=== PATIENT | female | born 1985 | race Caucasian/White ===

== ENCOUNTER 2019-08-09 05:48 | Inpatient (IN) | payer OTHER ==
[~2019-08-09] VITALS: Ht 162.6 cm; Wt 120.0 kg
[2019-08-09] MEDS ORDERED: EXPECTA PRENAT1 EACH (07:53)
[2019-08-09 08:31] LABS: BASOPHILS ABSOLUTE AUTO 0.04 K/mm3 (0.00-0.23); BASOPHILS PERCENT AUTO 0 % (0-2); EOSINOPHILS PERCENT AUTO 1 % (0-6); Hematocrit 38.4 % (33.0-51.0); Hemoglobin 12.8 g/dL (11.5-16.0); IMMATURE GRAN ABSOLUTE AUTO 0.14 K/mm3 (0.00-0.10); IMMATURE GRAN PERCENT AUTO 1 % (0-1); LYMPHOCYTES PERCENT AUTO 11 % (21-46); MONOCYTES ABSOLUTE AUTO 0.92 K/mm3 (0.16-1.47); MONOCYTES PERCENT AUTO 5 % (4-13); Mean Corpuscular HGB 29.6 pg (26.0-34.0); Mean Corpuscular HGB Conc 33.3 g/dL (31.5-36.5); Mean Corpuscular Volume 89 fL (80-100); Mean Platelet Volume 9.5 fL (9.1-12.4); NEUTROPHILS ABSOLUTE AUTO 14.19 K/mm3 (1.96-9.15); NEUTROPHILS PERCENT AUTO 83 % (41-73); Platelet Count 410 K/mm3 (150-400); RDW Coefficient Variation 13.7 % (11.7-14.2); RDW Standard Deviation 44.5 fL (35.1-46.3); Red Blood Cell Count 4.33 M/mm3 (3.80-5.20); White Blood Cell Count 17.19 K/mm3 (4.00-11.30)
[2019-08-10 05:09] LABS: Hemoglobin 10.7 g/dL (11.5-16.0); Mean Corpuscular HGB 29.9 pg (26.0-34.0); Mean Corpuscular HGB Conc 33.4 g/dL (31.5-36.5); Mean Corpuscular Volume 89 fL (80-100); Mean Platelet Volume 9.3 fL (9.1-12.4); Platelet Count 316 K/mm3 (150-400); RDW Coefficient Variation 13.8 % (11.7-14.2); RDW Standard Deviation 45.1 fL (35.1-46.3); Red Blood Cell Count 3.58 M/mm3 (3.80-5.20); White Blood Cell Count 20.15 K/mm3 (4.00-11.30)
[2019-08-10] MEDS ORDERED: IBUP800 PO (09:14)
[2019-08-10] MEDS ORDERED: Percocet 5-3251 EACH PO (09:14)
--- NOTE | 2019-08-10 17:00 | NUR ---
DISCHARGE INSTRUCTIONS REVIEWED AND SIGNED. ALL QUESTIONS ANSWERED. BANDS MATCHED. DISCHARGED TO HOME WITH INFANT.
== END 2019-08-10 17:00 | disposition home or self-care (01) | DRG 807 ==
LOC: OBS 05:48 → BC 05:49 → OBS 07:27 → BC 07:29
PROVIDERS: Advanced Practice Midwife; ADMIT Registered Nurse Community Health
PROC: 10E0XZZ Delivery of Products of Conception, External Approach (ICD-10-PCS; principal; 2019-08-09)
PROC: 10907ZC Drainage of Amniotic Fluid, Therapeutic from Products of Conception, Via Natural or Artificial Opening (ICD-10-PCS; 2019-08-09)
PROC: 3E0R3BZ Introduction of Anesthetic Agent into Spinal Canal, Percutaneous Approach (ICD-10-PCS; 2019-08-09)
DX: O99.824 Streptococcus B carrier state complicating childbirth (principal); Z37.0 Single live birth; O70.0 First degree perineal laceration during delivery; Z3A.38 38 weeks gestation of pregnancy; O99.334 Smoking (tobacco) complicating childbirth; F17.200 Nicotine dependence, unspecified, uncomplicated; O99.214 Obesity complicating childbirth; E66.9 Obesity, unspecified
CPT/HCPCS: 36415; 51702; 59025; 85025; 85027; 86900; 86901; 90686; J0290; J1885; J2001; J2590; J3010; J7120

== ENCOUNTER → 2020-02-14 | Outpatient (CLI) | payer OTHER ==
[~2020-02-14] MED LIST: EXPECTA PRENAT1 EACH; IBUP800 PO; Percocet 5-3251 EACH PO
[2020-02-14 17:24] LABS: Source, Urine Clean Catch
[2020-02-14 19:03] LABS: Bilirubin, Urine Neg (Neg); Blood, Urine 5+ (Neg); Glucose Qualitative, Urine Neg (Neg); Ketones, Urine Neg (Neg); Leukocyte Esterase, Urine Neg (Neg); Nitrite, Urine Neg (Neg); Protein, Urine 1+ (Neg); Specific Gravity, Urine 1.015 (1.003-1.022); Urobilinogen, Urine NORM (Normal)
[2020-02-14 19:10] LABS: Appearance, Urine Clear (Clear); Color, Urine Yellow (P-Yellow)
[2020-02-14 19:11] LABS: Bacteria Few /hpf; Red Blood Cells, Urine 25-50 /hpf (0-2); Squamous Epithelial Cells Few /hpf (Few); White Blood Cells, Urine 0-2 /hpf (0-5)
== END | disposition home or self-care (01) ==
LOC: LAB 14:00 → LAB SHORT 14:00
PROVIDERS: Advanced Practice Midwife
DX: R35.0 Frequency of micturition (principal); R30.9 Painful micturition, unspecified
CPT/HCPCS: 81001

== ENCOUNTER → 2021-02-20 | Outpatient (CLI) | payer OTHER ==
[~2021-02-20] MED LIST changes: +ACETAMINOPHEN500 MG PO; +CEPH500 PO; +SERT50
[2021-02-23 05:11] LABS: CHLAMYDIA TRACHOMATIS, NAA Negative (Negative)
== END | disposition home or self-care (01) ==
LOC: LAB SHORT 16:56 → PLD 16:56
PROVIDERS: Advanced Practice Midwife
DX: Z11.3 Encounter for screening for infections with a predominantly sexual mode of transmission (principal)
CPT/HCPCS: 87491; 87591